=== PATIENT | female | born 1980 ===

== ENCOUNTER 2025-06-01 06:22 | Day surgery (SDC) | payer BC, SELFPAY | END 2025-06-01 08:46 | disposition home or self-care (01) | LOC: GI 06:22 | PROVIDERS: ATTENDING PHYSICIAN Internal Medicine Gastroenterology; FAMILY PHYSICIAN Registered Nurse Medical-Surgical | DX: Z12.11 Encounter for screening for malignant neoplasm of colon (principal); Z83.719 Family history of colon polyps, unspecified | CPT/HCPCS: G0105 ==